=== PATIENT | male | born 1995 | race Asian ===

== ENCOUNTER 2017-10-22 08:21 | Emergency (ER) | payer OTHER ==
[~2017-10-22] VITALS: Ht 182.9 cm; Wt 75.6 kg
[~2017-10-22 08:21] MED LIST: ATR25 PO; DIPH1TAB98 PO; VITAMIN C; ZLF50 PO
[2017-10-22 08:29] VITALS: TEMP 36.8; Ht 182.9 cm; Wt 75.6 kg
[2017-10-22] MEDS ORDERED: FAMOTIDINE 20MG/5ML IV PUSH IV STA (09:25)
[2017-10-22] MEDS ORDERED: GI COCKTAIL PO STA (09:25)
[2017-10-22] MEDS ORDERED: ONDANSETRON INJ 2 MG/ML 2 ML VIAL IV STA (09:25)
[2017-10-22 09:43] LABS: BUN/CREATININE RATIO 11.7 (10-20); CALCIUM 9.2 mg/dl (8.5-10.1); CREATININE 1.02 mg/dl (0.60-1.40); POTASSIUM 3.7 mmol/L (3.5-5.1)
[2017-10-22 09:52] LABS: BASO % 0.2 %; BASO ABS # 0.03 K/uL (0-0.2); COMPLETE YES; EOS % 0.8 %; HEMATOCRIT 49.5 % (42-52); IG% 0.1 %; LYMPH % 8.7 %; LYMPH ABS # 1.25 K/uL (1.2-3.4); MEAN CELL VOLUME 91.5 fL (80-100); MEAN CORPUSCULAR HGB CONC 34.9 g/dl (32-36); MEAN PLATELET VOLUME 9.8 fL (7.4-10.4); MONO % 2.7 %; NEUT % 87.5 %; PLATELET COUNT 235 K/uL (130-400); RED BLOOD COUNT 5.41 M/uL (4.7-6.1); WHITE BLOOD COUNT 14.31 K/uL (4.8-10.8)
[2017-10-22] MEDS ORDERED: ALUMINUM/MAGNESIUM SUSP 30 ML UDC ONE (09:57)
[2017-10-22] MEDS ORDERED: LIDOCAINE HCL 2% VISC SOLN 20 ML UDC ONE (09:58)
[2017-10-22 10:21] LABS: URINE APPEARANCE CLEAR (CLEAR); URINE BILIRUBIN NEG (NEG); URINE COLOR YELLOW; URINE NITRITE NEG (NEG); URINE SPECIFIC GRAVITY 1.025 (1.000-1.030); UROBILINOGEN NEG (NEG); ZZUR CULT IF INDIC CLEAN CATCH NO
[2017-10-22 10:24] LABS: MANUAL MICROSCOPIC REQUIRED? NO; REVIEW REQ? NO
--- NOTE | 2017-10-22 10:41 | DIAGNOSTIC IMAGING REPORT ---
ABDOMEN 2VIEW W/PA CHEST RTN CLINICAL HISTORY: r/o free air, obstruction pain COMPARISON STUDY: No previous studies for comparison. FINDINGS: The soft tissues, psoas shadows, renal outlines and intestinal gas pattern appear normal. There is no evidence for bowel obstruction. There is no evidence for free intraperitoneal air. No abnormal abdominal calcifications are seen. A frontal view of the chest was performed and is unremarkable. IMPRESSION: Normal study. The above report was generated using voice recognition software. It may contain grammatical, syntax or spelling errors. Electronically signed by: Harrison Tran M.D. 10/22/2017 10:39 AM Dictated Date/Time: 10/22/2017 10:37 AM
[2017-10-22] MEDS ORDERED: ACETAMINOPHEN 500 MG TAB PO STA (10:49)
--- NOTE | 2017-10-22 11:31 | EMERGENCY ROOM VISIT NOTE ---
History First contact with patient: 08:34 Chief Complaint: ABDOMINAL PAIN Stated Complaint: ABD PAIN,DIARREHA,VOMITING Nursing Triage Summary: Abd pain that started 2 hours ago, woke up with pain. Vomiting. Diarrhea. History of Present Illness The patient is a 22 year old male who presents to the Emergency Room with complaints of epigastric pain, nausea, vomiting, and diarrhea that started abruptly about 3 hours ago. He states he woke up with a gnawing pain in his stomach, then vomited multiple times, and also had some watery diarrhea. He states his abdominal pain improved after vomiting. Emesis has been food content and clear liquid, he denies any bloody or bilious emesis. He does note eating some old leftovers yesterday, however he also states that his roommate ate the same food and has been feeling well. He also notes some possible sick contacts through school. He reports having similar symptoms once before in the past, states he was told that he had food poisoning and his symptoms got completely better. He has not tried any medication for the pain. He denies any symptoms of headache, neck pain, chest pain, shortness of breath, dizziness or passing out, back pain, blood in his stool, dysuria or urinary frequency, hematuria, rash. He denies any recent travel outside of the [place]. Review of Systems A complete 10 point review of systems was reviewed with the patient with pertinent positives and negatives as per history of present illness. All else were negative. Past Medical/Surgical History Medical Problems: (1) Depression (2) Suicidal ideations Social History Smoking Status: Never Smoker Alcohol Use: none Drug Use: none Marital Status: single Housing Status: unknown Occupation Status: [employer] student Current/Historical Medications Scheduled Ondasetron Odt (Zofran Odt), 4 MG SL Q6H Physical Exam Vital Signs Date Time Temp Pulse Resp B/P (MAP) Pulse Ox O2 Delivery O2 Flow Rate FiO2 10/22/17 13:41 88 16 136/76 98 10/22/17 12:42 72 16 125/76 98 Room Air 10/22/17 11:10 92 16 133/90 98 Room Air 10/22/17 10:19 76 10/22/17 10:09 97 18 145/101 99 Room Air 10/22/17 08:29 36.8 86 17 133/84 98 Room Air Physical Exam CONSTITUTIONAL: No acute distress, but does appear to be slightly uncomfortable. Mildly dehydrated. Alert and oriented X 4 with normal affect. HEENT: Normocephalic, atraumatic. Pupils equal, round and reactive to light, EOMI. TMs normal. Pharynx normal. Tacky mucous membranes. NECK: Supple, full active range of motion without discomfort. RESPIRATORY: Clear to auscultation bilaterally with no wheezing, crackles, rhonchi or stridor. Equal expansion bilaterally. CARDIOVASCULAR: Regular rate and rhythm with no murmurs, rubs or gallops. Normal peripheral perfusion. No edema. GASTROINTESTINAL: Mildly tender in the epigastric region, the abdomen is otherwise soft, nontender, nondistended. Hyperactive bowel sounds present in all quadrants. MUSCULOSKELETAL: Full range of motion of all joints without discomfort. INTEGUMENTARY: No rash or other significant dermatologic conditions noted. NEUROLOGIC: Cranial nerves II-XII grossly intact. No focal neurologic deficits noted. Medical Decision & Procedures ER Provider Diagnostic Interpretation: ABDOMEN 2VIEW W/PA CHEST RTN CLINICAL HISTORY: r/o free air, obstruction pain COMPARISON STUDY: No previous studies for comparison. FINDINGS: The soft tissues, psoas shadows, renal outlines and intestinal gas pattern appear normal. There is no evidence for bowel obstruction. There is no evidence for free intraperitoneal air. No abnormal abdominal calcifications are seen. A frontal view of the chest was performed and is unremarkable. IMPRESSION: Normal study. Laboratory Results 10/22/17 08:45 Red Blood Count 5.41, Mean Corpuscular Volume 91.5, Mean Corpuscular Hemoglobin 32.0, Mean Corpuscular Hemoglobin Concent 34.9, Mean Platelet Volume 9.8, Neutrophils (%) (Auto) 87.5, Lymphocytes (%) (Auto) 8.7, Monocytes (%) (Auto) 2.7, Eosinophils (%) (Auto) 0.8, Basophils (%) (Auto) 0.2, Neutrophils # (Auto) 12.52, Lymphocytes # (Auto) 1.25, Monocytes # (Auto) 0.38, Eosinophils # (Auto) 0.11, Basophils # (Auto) 0.03 10/22/17 08:45 Test 10/22/17 08:45 10/22/17 10:00 White Blood Count 14.31 K/uL (4.8-10.8) Red Blood Count 5.41 M/uL (4.7-6.1) Hemoglobin 17.3 g/dL (14.0-18.0) Hematocrit 49.5 % (42-52) Mean Corpuscular Volume 91.5 fL (80-100) Mean Corpuscular Hemoglobin 32.0 pg (25-34) Mean Corpuscular Hemoglobin Concent 34.9 g/dl (32-36) Platelet Count 235 K/uL (130-400) Mean Platelet Volume 9.8 fL (7.4-10.4) Neutrophils (%) (Auto) 87.5 % Lymphocytes (%) (Auto) 8.7 % Monocytes (%) (Auto) 2.7 % Eosinophils (%) (Auto) 0.8 % Basophils (%) (Auto) 0.2 % Neutrophils # (Auto) 12.52 K/uL (1.4-6.5) Lymphocytes # (Auto) 1.25 K/uL (1.2-3.4) Monocytes # (Auto) 0.38 K/uL (0.11-0.59) Eosinophils # (Auto) 0.11 K/uL (0-0.5) Basophils # (Auto) 0.03 K/uL (0-0.2) RDW Standard Deviation 42.0 fL (36.4-46.3) RDW Coefficient of Variation 12.5 % (11.5-14.5) Immature Granulocyte % (Auto) 0.1 % Immature Granulocyte # (Auto) 0.02 K/uL (0.00-0.02) Anion Gap 8.0 mmol/L (3-11) Est Creatinine Clear Calc Drug Dose 121.5 ml/min Estimated GFR () 120.4 Estimated GFR (Non- 103.8 BUN/Creatinine Ratio 11.7 (10-20) Calcium Level 9.2 mg/dl (8.5-10.1) Total Bilirubin 0.8 mg/dl (0.2-1) Direct Bilirubin 0.2 mg/dl (0-0.2) Aspartate Amino Transf (AST/SGOT) 13 U/L (15-37) Alanine Aminotransferase (ALT/SGPT) 38 U/L (12-78) Alkaline Phosphatase 68 U/L (45-117) Total Protein 8.0 gm/dl (6.4-8.2) Albumin 4.4 gm/dl (3.4-5.0) Lipase 80 U/L (73-393) Urine Color YELLOW Urine Appearance CLEAR (CLEAR) Urine pH 5.0 (4.5-7.5) Urine Specific [place] 1.025 (1.000-1.030) Urine Protein NEG (NEG) Urine Glucose (UA) NEG (NEG) Urine Ketones NEG (NEG) Urine Occult Blood NEG (NEG) Urine Nitrite NEG (NEG) Urine Bilirubin NEG (NEG) Urine Urobilinogen NEG (NEG) Urine Leukocyte Esterase NEG (NEG) Medications Administered Medications (Trade) Dose Ordered Sig/Ivon Route Start Time Stop Time Status Last Admin Dose Admin Ondansetron HCl (Zofran Inj) 4 mg NOW STAT IV 10/22/17 09:25 10/22/17 09:29 DC 10/22/17 10:02 4 MG Famotidine (Pepcid 20mg Iv Push) 20 mg NOW STAT IV 10/22/17 09:25 10/22/17 09:29 DC 10/22/17 09:25 20 MG Al Hydroxide/Mg Hydroxide (Maalox Susp) 30 ml STK-MED ONCE .ROUTE 10/22/17 09:57 10/22/17 09:58 DC 10/22/17 10:02 30 ML Lidocaine HCl (Viscous Lidocaine 2% Soln) 20 ml STK-MED ONCE .ROUTE 10/22/17 09:58 10/22/17 09:59 DC 10/22/17 10:02 20 ML Acetaminophen (Tylenol Tab) 1,000 mg NOW STAT PO 10/22/17 10:49 10/22/17 10:50 DC 10/22/17 11:09 1,000 MG Medical Decision CC: Patient presenting with complaint of epigastric pain, nausea/vomiting, diarrhea Interpretation of Labs: Leukocytosis with left shift, no anemia, no significant left related abnormality, normal renal function, normal liver enzymes and lipase. UA negative. Differential Diagnosis: Includes, but not limited to gastritis, gastroenteritis , cholecystitis, cholelithiasis, pancreatitis, peptic ulcer disease, small bowel obstruction, bowel perforation, among others. Medication Reconciliation: I attest that I have personally reviewed the patient' s current medication list. Vital signs initial review: I reviewed the patient's vital signs and interpret them as follows: T: Afebrile; BP: Normotensive; HR: Within normal limits; RR : Within normal limits; Pulse Ox: Within normal limits on room air. Summary: Patient was evaluated at bedside, history and physical exam performed. Patient is alert and oriented, in no acute distress, resting calmly in the stretcher. Patient does have mild epigastric tenderness on abdominal exam, but is otherwise nontender with hyperactive bowel sounds. Patient does appear to be mildly dehydrated. Orders were placed at bedside for labs, UA, IV fluids for hydration, acute abdominal series to rule out small bowel obstruction and free air. Patient was given IV Pepcid and Zofran, GI cocktail, and Tylenol to treat his symptoms. Patient discussed with Dr. Mohr, who agrees with my assessment and plan. Labs reviewed as above, notable for leukocytosis, otherwise unremarkable. X-ray imaging reviewed, no acute abnormalities, no evidence of bowel obstruction or free air. Patient reassessed multiple times throughout ED stay, patient is greatly improved after interventions, he has not had any continuation of vomiting or diarrhea and has tolerated PO fluids without difficulty. He also states that his pain is much better. I suspect the patient most likely has a viral gastroenteritis given the leukocytosis and abrupt onset of symptoms, versus possible food poisoning. Patient was updated on all results and plan for discharge home, he was encouraged to follow closely with his primary care provider. Patient was also given strict return precautions for any persistent or worsening symptoms, he verbalized understanding. Patient was discharged home in stable condition and ambulatory. Blood Pressure Screening Patient's blood pressure: Elevated blood pressure Blood pressure disposition: Elevated BP felt to be situational Impression Primary Impression: Acute gastroenteritis Departure Information Dispostion Home / Self-Care Condition GOOD Prescriptions Ondasetron Odt (ZOFRAN ODT) 4 Mg Tab 4 MG SL Q6H for Nausea, #6 TAB Prov: Elva Johnson CRNP 10/22/17 Referrals [facility] (PCP) Patient Instructions ED Food Poison Or Gastroenteritis, My [facility] Additional Instructions You have been treated in the Emergency Department your abdominal pain, vomiting , and diarrhea. Laboratory results and imaging studies have ruled out any emergent causes for your abdominal pain which would warrant admission or surgery. You most likely have a viral gastroenteritis or food poisoning. You have been prescribed Zofran to be used for any nausea or vomiting. Take as prescribed. You may take Tylenol 1000 mg every 8 hours as needed for pain. Do not take more than 3000 mg in 24 hours. Avoid taking any NSAIDs such as ibuprofen, Advil, Motrin, Aleve, until your symptoms have resolved, as these medications can further irritate the lining of your stomach. It is ESSENTIAL that you maintain adequate hydration with oral fluids! Some suggestions include: - Water is the IDEAL replacement for lost fluids. You should initially sip at the water to help facilitate increased intestinal absorption rate and to decrease the possibility of nausea/vomiting. - Carbohydrate/Electrolyte-Containing Drinks (i.e. Gatorade, Powerade, Pedialyte). All of these are good choices, but it is important to remember that all of these drinks contain a high concentration of sugar. - Popsicles, ice chips, and fruit juices are all other options. - My FAVORITE dehydration remedy is to mix a 1:1 solution of bottled Gatorade with bottled water. This dilution allows for a palatable flavor with added benefit of a reduction in the amount of sugar consumption. You may take [id number] medications such as Pepcid, Zantac, Tums, Maalox, or Pepto-Bismol to help manage her stomach discomfort. Stick with clear liquids today, and slowly advance her diet back to normal over the next day or 2, sticking with bland foods until your feeling back to normal. You should avoid all dairy foods, seafoods, and foods high in fat or difficult to digest until you are feeling back to normal. As with all Emergency Department visits, you should follow-up with your Primary Care Provider in 2-3 days for reevaluation. Return to the emergency department if your symptoms persist despite treatment plan outlined above or if the following symptoms occur: Severe worsening abdominal pain, fevers greater than 101, worsening nausea/vomiting, vomiting up blood or bile, blood in your stool or urine, decreased urination, or any other concerns.
[2017-10-22] MEDS ORDERED: ONDA4TAB10 SL (13:07)
[2017-10-22 13:41] VITALS: BP 136/76; PULSE 88; O2SAT 98
== END 2017-10-22 13:42 | disposition home or self-care (01) ==
LOC: C.EDB 08:23
DX: K52.9 Noninfective gastroenteritis and colitis, unspecified (principal); F32.9 Major depressive disorder, single episode, unspecified

== ENCOUNTER → 2017-10-25 | Outpatient (CLI) | payer OTHER ==
[~2017-10-25] MED LIST changes: +ONDA4TAB10 SL
--- NOTE | 2017-10-25 15:59 | DIAGNOSTIC IMAGING REPORT ---
(CHEST) THORAX WITHOUT CT DOSE: 240.81 mGy.cm CLINICAL HISTORY: 22 years-old Male with ABN CHEST XRAY. Acute upper abdominal pain. TECHNIQUE: Multiaxial CT images of the chest were performed without contrast. A dose lowering technique was utilized adhering to the principles of ALARA. COMPARISON: Acute abdominal series radiographs 10/22/2017. FINDINGS: No dominant thyroid nodule identified. Residual thymic tissue of the anterior mediastinum is noted. No pathologic-appearing adenopathy identified. Mild bilateral gynecomastia. Heart is normal in size without pericardial effusion. Thoracic aorta is normal in course and caliber without dissection or aneurysm. There is no pneumothorax, pleural effusion or focal airspace consolidation. The lungs are adequately and symmetrically inflated. No suspicious pulmonary nodules or masses. Central airways are patent. Upper abdominal structures are within normal limits. The soft tissues are also unremarkable. The bones appear intact. No significant degenerative changes. IMPRESSION: 1. No acute intrathoracic abnormality identified. 2. No pathologic adenopathy or focal airspace consolidation. Electronically signed by: Wesley Ndiaye M.D. 10/25/2017 3:58 PM Dictated Date/Time: 10/25/2017 3:55 PM
== END | disposition home or self-care (01) ==
LOC: C.CTS 15:33
PROVIDERS: ATTEND Physician Assistant
DX: R93.8 Abnormal findings on diagnostic imaging of other specified body structures (principal)